=== PATIENT | male | born 1955 | race Caucasian/White ===

== ENCOUNTER 2017-11-12 23:13 | Emergency (ER) | payer MEDICARE ==
[~2017-11-12] VITALS: Ht 182.9 cm; Wt 81.6 kg
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
--- NOTE | 2017-11-12 23:22 | NUR ---
PT'S PARTNER BREANA KEN [phone]
[2017-11-12] MEDS ORDERED: IV NS 0.9% 1,000 ML BAG IV ONE (23:30)
--- NOTE | 2017-11-12 23:35 | NUR ---
EKG AT BEDSIDE
--- NOTE | 2017-11-12 23:39 | NUR ---
AWAITING URINE SAMPLE. WILL DO IN/OUT CATH IF NOTHING PRODUCED
[2017-11-12 23:43] LABS: BASOPHILS % (AUTO) 0.3 % (0.0-2.0); EOSINOPHILS # (AUTO) 0.3 /CMM (0.0-0.7); EOSINOPHILS % (AUTO) 3.5 % (0.0-6.0); HEMATOCRIT 47 % (39-51); HEMOGLOBIN 16.1 g/dL (13.5-17.5); LYMPHOCYTES # (AUTO) 3.2 /CMM (0.8-4.8); LYMPHOCYTES % (AUTO) 38.9 % (20.0-44.0); MEAN CORPUSCULAR HEMOGLOBIN 36 PG (26.0-33.0); MEAN CORPUSCULAR HGB CONC 34 g/dl (31.0-36.0); MEAN CORPUSCULAR VOLUME 106 fL (80-96); MONOCYTES % (AUTO) 11.7 % (2.0-12.0); NEUTROPHILS # (AUTO) 3.8 /CMM (1.8-8.9); NEUTROPHILS % (AUTO) 45.6 % (43.0-81.0); PLATELET COUNT (AUTO) 199 /CMM (150-450); RDW COEFFICIENT OF VARIATION 16.1 (11.5-15.0); RED BLOOD CELL COUNT(AUTO) 4.44 MIL/uL (4.5-6.0); WHITE BLOOD COUNT (AUTO) 8.3 K/uL (4.3-11.0)
[2017-11-12 23:53] LABS: CALCIUM, SERUM 8.4 mg/dL (8.5-10.1); POTASSIUM 5.1 mmol/L (3.5-5.1)
[2017-11-13 00:05] LABS: ALBUMIN 3.3 g/dL (3.4-5.0); BILIRUBIN,DIRECT 0.1 mg/dL (0.0-0.2); BILIRUBIN,TOTAL 0.8 mg/dL (0.2-1.0); TOTAL PROTEIN, SERUM 7.2 g/dL (6.4-8.2)
[2017-11-13 00:06] LABS: SALICYLATE 0.5 mg/dL (2.8-20.0)
[2017-11-13 00:59] LABS: APPEARANCE,URINE CLEAR (CLEAR); BILIRUBIN,URINE NEGATIVE (NEGATIVE); BLOOD, URINE NEGATIVE Ery/uL (NEGATIVE); COLOR,URINE YELLOW (YELLOW); KETONES,URINE NEGATIVE (NEGATIVE); LEUKOCYTE ESTERASE ,URINE NEGATIVE (NEGATIVE); NITRITE, URINE NEGATIVE (NEGATIVE); PH,URINE 6.5 (5.0-8.0); PROTEIN,URINE NEGATIVE (NEGATIVE); UGLUCOSE NEGATIVE (NEGATIVE); UROBILINOGEN,URINE 0.2 EU/dL (0.2)
[2017-11-13] MEDS ORDERED: IV NS 0.9% 1,000 ML BAG IV ONE (01:00)
[2017-11-13 01:01] VITALS: BP 167/105
== END 2017-11-13 01:02 | disposition home or self-care (01) ==
LOC: ER 23:17
DX: F41.9 Anxiety disorder, unspecified (principal); G47.00 Insomnia, unspecified; G89.4 Chronic pain syndrome
CPT/HCPCS: 36415; 80048; 80076; 80305; 80329; 81001; 83690; 84484; 85025; 93005; 96360; 99285; A4606; G0480 ×2; J7030; 81000-TC; Z7610

== ENCOUNTER 2022-05-13 01:48 | Emergency (ER) | payer MEDICARE, BC ==
[~2022-05-13] VITALS: Ht 177.8 cm; Wt 67.1 kg
--- NOTE | 2022-05-13 01:59 | NUR ---
DR. ANATOLY ALDRIDGE AT PT'S BEDSIDE
--- NOTE | 2022-05-13 02:17 | NUR ---
PT TAKEN TO CT VIA [facility]
[2022-05-13] MEDS ORDERED: HYDR-4275 PO (03:58)
[2022-05-13] MEDS ORDERED: AMOX-430 PO (03:58)
[2022-05-13] MEDS ORDERED: AMOX/CLAVULANATE 875 MG TABLET PO ONE (04:00)
[2022-05-13] MEDS ORDERED: HYDROCODONE/APAP 5/325MG TABLET PO ONE (04:00)
[2022-05-13 04:07] VITALS: BP 124/72
[2022-05-13] MEDS ORDERED: HYDROCODONE/APAP 5/325MG TABLET ONE (04:07)
[2022-05-13] MEDS ORDERED: AMOX/CLAVULANATE 875 MG TABLET ONE (04:07)
--- NOTE | 2022-05-13 04:11 | NUR ---
Patient discharged to home in stable condition. Written and verbal after care instructions given. Patient verbalizes understanding of instruction.
== END 2022-05-13 04:12 | disposition home or self-care (01) ==
LOC: ER 01:50
DX: S02.2XXA Fracture of nasal bones, initial encounter for closed fracture (principal); I10 Essential (primary) hypertension; F32.A Depression, unspecified; G89.4 Chronic pain syndrome; Z60.2 Problems related to living alone; W07.XXXA Fall from chair, initial encounter; Y93.89 Activity, other specified; Y92.89 Other specified places as the place of occurrence of the external cause; Y99.8 Other external cause status
CPT/HCPCS: 70486-TC